=== PATIENT | male | born 1950 | race African-American/Black ===

== ENCOUNTER 2018-04-07 09:10 | Emergency (ER) | payer MEDICARE ==
[2018-04-07 09:34] VITALS: BP 162/95; PULSE 75; TEMP 98.3; BMI 32.5
[2018-04-07] MEDS ORDERED: ONDANSETRON 4 MG/2 ML VIAL IVPUSH ONE (10:09)
--- NOTE | 2018-04-07 10:15 | PDOC ---
Attending Attestation - Resident Resident Name: CarmeloBronson - ED Attending Attestation I have performed the following: I have examined & evaluated the patient, The case was reviewed & discussed with the resident, I agree w/resident's findings & plan, Exceptions are as noted - HPI HPI: 04/07/18 10:10 67 yo M h/o DM HTN HLD, eSRD (not on dialysis yet ) left av fistula here with abd pain n/v. pt states vomiting has been off and on for one week. last night he threw up several times. no cp no sob. no f/c no abd pain , only prior to vomiting. last bm was this am, no abnormalities. no diarreha. has had multiple surgeries in the past including gastric sleeve 2 yrs ago in [facility], cholecystectomy, hernia repair, and throat surgery for throat cancer. this am tried to drink water and coffeee, but had severe nausea. - Physicial Exam PE: 04/07/18 10:13 awake alert lungs clear bilaterally heart rrr no mrg abd soft nt nd. ext wwp no edema. no calf tenderness. skin warm and dry. left forearm fistula good bruit, no erythema. nuero alert oriented x 3. - Medical Decision Making 04/07/18 10:13 differential: electrolyte abnormality worsening uremia causing nausea, vomiting , infection , anemia, osbruction, complications of gastric sleeve. plan ct a/p ( pt allergic to oral and iv contrast. ) antiemetics. small ivf bolus reassess. 04/07/18 12:43 pt labs are at baseline cr. 4.3, near baseline. pt asking to eat. awaiting ct report. Heart Score/ECG Review #1 General ECG Interpretation: Sinus Rhythm, Normal Rate (70), Normal Intervals, No acute ischemic changes
[2018-04-07] MEDS ORDERED: ONDANSETRON 4 MG/2 ML VIAL ONE (11:31)
--- NOTE | 2018-04-07 11:53 | PDOC ---
History of Present Illness - General Chief Complaint: Nausea/Vomiting Stated Complaint: ABD PAIN, NAUSEA History Source: Patient Exam Limitations: No Limitations - History of Present Illness Initial Comments: 04/07/18 11:49 67 yo M with a hx of gastric sleeve (2 years ago), ESRD (not on dialysis; left wrist AV fistula placed 3 years ago), and throat cancer (s/p resection 2017) presents to the emergency department with vomiting Past History - Past Medical History Allergies/Adverse Reactions: Allergies Allergy/AdvReac Type Severity Reaction Status Date / Time Iodinated Contrast- Oral and Allergy Hives Verified 04/07/18 09:30 IV Dye [IV Dye, Iodine Containing Contrast ] TAPE AdvReac Rash Uncoded 04/07/18 09:30 Home Medications: Ambulatory Orders Cholecalciferol (Vitamin D3) [Vitamin D3] 2,000 unit PO DAILY 12/04/14 Amlodipine Besylate [Norvasc -] 20 mg PO DAILY 02/26/15 Simvastatin 40 mg PO HS 08/19/15 Anemia: No Asthma: Yes Cancer: No Cardiac Disorders: No CVA: No COPD: Yes CHF: No Dementia: No Diabetes: Yes (non insulin) GI Disorders: Yes (COLON POLYPS, DIVERTICULOSIS) Disorders: No (RENAL INSUFFICIENCY) HTN: Yes Hypercholesterolemia: Yes Liver Disease: Yes (FATTY LIVER) Seizures: No Thyroid Disease: No - Surgical History Abdominal Surgery: Yes (UMBILICAL HERNIA REPAIR WITH MESH) Appendectomy: No Cardiac Surgery: No Cholecystectomy: Yes Lung Surgery: No Neurologic Surgery: No Orthopedic Surgery: No - Immunization History Immunization Up to Date: Yes - Suicide/Smoking/Psychosocial Hx Smoking Status: No Smoking History: Former smoker Have you smoked in the past 12 months: No Number of Cigarettes Smoked Daily: 1 If you are a former smoker, when did you quit?: 2013 Information on smoking cessation initiated: No 'Breaking Loose' booklet given: 02/27/15 Hx Alcohol Use: No Drug/Substance Use Hx: No Substance Use Type: None Hx Substance Use Treatment: No *Physical Exam - Vital Signs Last Vital Signs Temp Pulse Resp BP Pulse Ox 98.3 F 75 18 162/95 100 04/07/18 09:30 04/07/18 09:30 04/07/18 09:30 04/07/18 09:30 04/07/18 09:30 Moderate Sedation - Procedure Monitoring Vital Signs: Procedure Monitoring Vital Signs Temperature 98.3 F 12/07/18 09:30 Pulse Rate 75 04/07/18 09:30 Respiratory Rate 18 04/07/18 09:30 Blood Pressure 162/95 04/07/18 09:30 O2 Sat by Pulse Oximetry (%) 100 04/07/18 09:30 ED Treatment Course - LABORATORY CBC & Chemistry Diagram: 04/07/18 11:25 04/07/18 10:08 Medical Decision Making - Medical Decision Making 04/07/18 14:06 tolerate PO prior to discharge *DC/Admit/Observation/Transfer Diagnosis at time of Disposition: Vomiting Qualifiers: Vomiting type: unspecified Vomiting Intractability: intractable Nausea presence : without nausea Qualified Code(s): R11.11 - Vomiting without nausea Abdominal pain Qualifiers: Abdominal location: unspecified location Qualified Code(s): R10.9 - Unspecified abdominal pain - Discharge Dispostion Disposition: HOME Decision to Admit order: No - Referrals Referrals: Michael Noguera MD [Primary Care Provider] - - Patient Instructions Printed Discharge Instructions: DI for Vomiting -- Adult Additional Instructions: you were evaluated in the emergency department for your vomiting and abdominal pain. your labs were within normal limits. Your abdomen CT was negative for new pathologies. We obtained this scan because of our concern of a malfunctioning gastric sleeve. Please follow up with Dr. Noguera within 72 hours after discharge for follow up care and management. Please return to the emergency department if you have worsening symptoms or new concerning symptoms such as loss of stool production, fever/chills, chest pain, shortness of breath, and non-intractable vomiting. thank you. - Post Discharge Activity
[2018-04-07 12:18] LABS: EOS % 7.6 % (0-4.5); WHITE BLOOD COUNT 8.4 K/mm3 (4.0-10.0)
[2018-04-07 12:29] LABS: BASO % 0.8 % (0-2.0); HEMATOCRIT 40.6 % (35.4-49); HEMOGLOBIN 12.7 GM/dL (11.7-16.9); LYMPH % 27.1 % (8-40); MCH 29.4 pg (25.7-33.7); MCHC 31.4 g/dl (32.0-35.9); MEAN CELL VOLUME 93.5 fl (80-96); MEAN PLT VOLUME 10.8 fl (7.5-11.1); MONO % 7.3 % (3.8-10.2); NEUT % 57.2 % (42.8-82.8); PLATELET COUNT 201 K/MM3 (134-434); RBC 4.34 M/mm3 (4.00-5.60); RDW 14.4 % (11.9-15.9)
[2018-04-07 12:36] LABS: ALBUMIN 4.1 g/dl (3.4-5.0); ALK PHOS 136 U/L (45-117); ANION GAP 8 MMOL/L (8-16); BILIRUBIN,TOTAL 0.5 mg/dL (0.2-1); BLOOD UREA NITROGEN 33 mg/dL (7-18); CALCIUM 10.2 mg/dL (8.5-10.1); CHLORIDE 110 mmol/L (98-107); CO2 26 mmol/L (21-32); CREATININE 4.3 mg/dL (0.55-1.3); GLUCOSE,RANDOM 93 mg/dL (74-106); LIPASE 319 U/L (73-393); POTASSIUM 4.9 mmol/L (3.5-5.1); SGOT/AST 14 U/L (15-37); SGPT/ALT 22 U/L (13-61); SODIUM 144 mmol/L (136-145); TOT PROT 7.7 g/dl (6.4-8.2)
--- NOTE | 2018-04-07 19:01 | EKG ---
Test Reason : Blood Pressure : / mmHG Vent. Rate : 070 BPM Atrial Rate : 070 BPM P-R Int : 176 ms QRS Dur : 090 ms QT Int : 372 ms P-R-T Axes : 056 -32 071 degrees QTc Int : 401 ms NORMAL SINUS RHYTHM LEFT AXIS DEVIATION ABNORMAL ECG WHEN COMPARED WITH ECG OF 05-FEB-2015 19:49, VENT. RATE HAS DECREASED BY 37 BPM Confirmed by BLANCHE HOSKINS, JOSEPH ([id number]) on 04/07/2018 7:00:56 PM Referred By: Confirmed By:JOSEPH MANCIA MD
== END 2018-04-07 13:49 | disposition home or self-care (01) ==
LOC: JER 09:10
PROC: 3E033GC Introduction of Other Therapeutic Substance into Peripheral Vein, Percutaneous Approach (ICD-10-PCS; principal; 2018-04-07)
DX: R10.9 Unspecified abdominal pain (principal); R11.10 Vomiting, unspecified; I12.0 Hypertensive chronic kidney disease with stage 5 chronic kidney disease or end stage renal disease; E11.22 Type 2 diabetes mellitus with diabetic chronic kidney disease; N18.6 End stage renal disease; N17.8 Other acute kidney failure; Z79.84 Long term (current) use of oral hypoglycemic drugs; E78.00 Pure hypercholesterolemia, unspecified
CPT/HCPCS: 36415; 74176-TC; 80053; 82550; 83690; 84484; 85025; 93005; 93010; 96374; 99282-25

== ENCOUNTER 2020-04-02 10:40 | Emergency (ER) | payer OTHER ==
[2020-04-02 10:47] VITALS: BP 137/90; PULSE 91; BMI 33.5
[2020-04-02 10:48] VITALS: TEMP 98.6
== END 2020-04-02 11:41 | disposition home or self-care (01) ==
LOC: JERFT 10:40
DX: M26.602 Left temporomandibular joint disorder, unspecified (principal)
CPT/HCPCS: 99282-25

== ENCOUNTER 2020-10-18 21:26 | Inpatient (IN) | payer OTHER ==
[2020-10-18] MEDS ORDERED: LIDOCAINE 5% TOPICAL PATCH TP ONE (22:21)
[2020-10-18] MEDS ORDERED: IBUPROFEN 600 MG TABLET (FP) PO ONE (22:23)
[2020-10-18] MEDS ORDERED: LIDOCAINE 5% TOPICAL PATCH ONE (22:28)
[2020-10-18] MEDS ORDERED: ACETAMINOPHEN 325 MG TABLET (FP) PO ONE (22:28)
[2020-10-18] MEDS ORDERED: ACETAMINOPHEN 325 MG TABLET (FP) ONE (22:29)
[2020-10-18 22:55] LABS: BASO % 1.1 % (0-2.0); EOS % 7.9 % (0-4.5); HEMOGLOBIN 10.9 GM/dL (11.7-16.9); LYMPH % 22.3 % (8-40); MCH 31.4 pg (25.7-33.7); MCHC 33.1 g/dl (32.0-35.9); MEAN CELL VOLUME 94.8 fl (80-96); MEAN PLT VOLUME 9.1 fl (7.5-11.1); MONO % 9.4 % (3.8-10.2); NEUT % 59.3 % (42.8-82.8); PLATELET COUNT 165 10^3/uL (134-434); RBC 3.48 M/mm3 (4.00-5.60); RDW 14.1 % (11.9-15.9); WHITE BLOOD COUNT 8.2 K/mm3 (4.0-10.0)
[2020-10-18 23:19] LABS: CHLORIDE 108 mmol/L (98-107); SODIUM 143 mmol/L (136-145)
[2020-10-18 23:21] LABS: CALCIUM 7.7 mg/dL (8.5-10.1)
[2020-10-18 23:22] LABS: ALBUMIN 3.8 g/dl (3.4-5.0); ANION GAP 9 MMOL/L (8-16); BLOOD UREA NITROGEN 59.6 mg/dL (7-18); CO2 26 mmol/L (21-32); GLUCOSE,RANDOM 86 mg/dL (74-106); MAGNESIUM 2.3 mg/dL (1.8-2.4)
[2020-10-18 23:25] LABS: SGOT/AST 15 U/L (15-37); SGPT/ALT 14 U/L (13-61)
[2020-10-18 23:27] LABS: BILIRUBIN,TOTAL 0.4 mg/dL (0.2-1); TOT PROT 7.1 g/dl (6.4-8.2)
[2020-10-18 23:28] LABS: ALK PHOS 74 U/L (45-117)
[2020-10-19] LABS: CREATININE 10.4 mg/dL (0.55-1.3)
[2020-10-19 03:35] VITALS: BMI 34.7
[2020-10-19 03:50] VITALS: TEMP 97.7
[2020-10-19 03:50] LABS: PHOSPHOROUS 5.6 mg/dL (2.5-4.9)
[2020-10-19] MEDS: ACETAMINOPHEN 325 MG TABLET (FP) PO PRN ×2 (04:15→10:59)
[2020-10-19] MEDS: HEPARIN NA (PORCINE) 5,000 UNITS/ML 1ML VIAL SQ SCH ×2 (06:10→14:57)
[2020-10-19 08:12] LABS: CHLORIDE 107 mmol/L (98-107); SODIUM 142 mmol/L (136-145)
[2020-10-19 08:13] LABS: CALCIUM 7.7 mg/dL (8.5-10.1); MCHC 32.4 g/dl (32.0-35.9); MEAN CELL VOLUME 95.5 fl (80-96); MEAN PLT VOLUME 9.3 fl (7.5-11.1); PLATELET COUNT 156 10^3/uL (134-434); RBC 3.56 M/mm3 (4.00-5.60); RDW 14.1 % (11.9-15.9); WHITE BLOOD COUNT 6.9 K/mm3 (4.0-10.0)
[2020-10-19 08:14] LABS: ANION GAP 9 MMOL/L (8-16); BLOOD UREA NITROGEN 61.1 mg/dL (7-18); CO2 26 mmol/L (21-32); GLUCOSE,RANDOM 86 mg/dL (74-106); MAGNESIUM 2.4 mg/dL (1.8-2.4)
[2020-10-19 08:22] LABS: IRON SERUM 58 ug/dL (50-175)
[2020-10-19 08:39] LABS: CREATININE 10.3 mg/dL (0.55-1.3)
[2020-10-19] MEDS ORDERED: PANTOPRAZOLE 40 MG TABLET PO SCH (10:00)
[2020-10-19] MEDS ORDERED: amLODIPine BESYLATE 5 MG TABLET (FP) PO SCH (10:00)
[2020-10-19] MEDS ORDERED: LIDOCAINE PATCH REMOVAL MC SCH (10:00)
[2020-10-19] MEDS ORDERED: CALCIUM CARBONATE 650 MG TABLET PO SCH (10:00)
[2020-10-19] MEDS ORDERED: FINASTERIDE 5 MG TABLET (FP) PO SCH (10:00)
[2020-10-19] MEDS ORDERED: PT OWN MED DRAWER 7, Y5N ONE ×2 (10:15→12:25)
[2020-10-19] MEDS ORDERED: SODIUM CHLORIDE 250 ML IV PRN (12:44)
[2020-10-19 16:33] VITALS: PULSE 74
[2020-10-19 17:12] VITALS: BP 128/86
[2020-10-19] MEDS ORDERED: ATORVASTATIN CA 20 MG TABLET (FP) PO SCH (22:00)
== END 2020-10-19 18:31 | disposition home or self-care (01) | DRG 682 ==
LOC: JER 21:26 → JERBED 22:41 → J7W 10-19 02:57
PROVIDERS: ADMIT Internal Medicine; ATTEND Internal Medicine
PROC: 5A1D70Z Performance of Urinary Filtration, Intermittent, Less than 6 Hours Per Day (ICD-10-PCS; principal; 2020-10-19)
DX: I12.0 Hypertensive chronic kidney disease with stage 5 chronic kidney disease or end stage renal disease (principal); N18.6 End stage renal disease; E11.22 Type 2 diabetes mellitus with diabetic chronic kidney disease; E78.5 Hyperlipidemia, unspecified; E66.9 Obesity, unspecified; Z68.34 Body mass index [BMI] 34.0-34.9, adult; E83.51 Hypocalcemia; D63.1 Anemia in chronic kidney disease; K59.09 Other constipation; G47.30 Sleep apnea, unspecified; Z85.850 Personal history of malignant neoplasm of thyroid; Z99.2 Dependence on renal dialysis
CPT/HCPCS: 36415; 70490-TC; 71045-TC-FY; 80048; 80053; 82652; 82728; 83036; 83540; 83550; 83735; 83970; 84100; 85025; 85027; 86803; 87340; 93005; 93010; 99285-25; C9803; J1644; U0003; U0005

== ENCOUNTER 2021-03-25 04:22 | Day surgery (SDC) | payer OTHER ==
[2021-03-24 11:15] VITALS: BMI 44.3
[2021-03-25] MEDS ORDERED: MIDAZOLAM HCL 2 MG/2 ML SINGLE DOSE VIAL ONE (10:00)
[2021-03-25] MEDS ORDERED: PROPOFOL 20 ML ONE (10:00)
[2021-03-25] MEDS ORDERED: ROCURONIUM BROMIDE 50 MG/5 ML SYRINGE ONE (10:00)
[2021-03-25] MEDS ORDERED: BUPIVACAINE HCL/PF 0.5% (5MG/ML) 10 ML VIAL ONE (10:10)
[2021-03-25] MEDS ORDERED: ETOMIDATE 20 MG/10 ML AMPUL IVPUSH ONE (10:43)
[2021-03-25] MEDS ORDERED: DEXAMETHASONE SOD PHOSPHATE 4 MG/1 ML VIAL ONE (10:50)
[2021-03-25] MEDS ORDERED: ceFAZolin SODIUM 1 GM VIAL ONE (10:50)
[2021-03-25] MEDS ORDERED: ceFAZolin SODIUM 1 GM VIAL IVPB ONE (10:50)
[2021-03-25] MEDS ORDERED: BUPIVACAINE HCL/PF 0.5% (5MG/ML) 10 ML VIAL IJ ONE (11:05)
[2021-03-25] MEDS ORDERED: NEOSTIGMINE METHYLSULFATE 0.5 MG/ML - 10 ML MDV ONE (11:33)
[2021-03-25] MEDS ORDERED: GLYCOPYRROLATE 0.2 MG/1 ML VIAL ONE (11:34)
[2021-03-25] MEDS ORDERED: oxyCODONE HCL 5 MG TABLET PO PRN ×2 (11:58)
[2021-03-25] MEDS ORDERED: ONDANSETRON 4 MG/2 ML VIAL IVPUSH PRN (11:58)
[2021-03-25] MEDS ORDERED: SODIUM CHLORIDE 1,000 ML IV SCH (12:00)
[2021-03-25] MEDS ORDERED: oxyCODONE HCL 5 MG TABLET ONE (12:40)
[2021-03-25] MEDS ORDERED: ONDANSETRON 4 MG/2 ML VIAL ONE (12:40)
[2021-03-25 14:27] VITALS: BP 138/80; PULSE 68; TEMP 97.2
== END 2021-03-25 14:15 | disposition home or self-care (01) ==
LOC: JASU-SURG 04:22
PROVIDERS: ATTEND Surgery
PROC: 0WHG43Z Insertion of Infusion Device into Peritoneal Cavity, Percutaneous Endoscopic Approach (ICD-10-PCS; principal; 2021-03-25 10:00)
DX: I12.0 Hypertensive chronic kidney disease with stage 5 chronic kidney disease or end stage renal disease (principal); E11.22 Type 2 diabetes mellitus with diabetic chronic kidney disease; N18.6 End stage renal disease; Z99.2 Dependence on renal dialysis
CPT/HCPCS: 36415; 84132; 94760; J1644

== ENCOUNTER 2023-02-04 12:53 | Observation (INO) | payer MEDICARE ==
[2023-02-04 13:27] VITALS: BMI 33.6
[2023-02-04] MEDS ORDERED: ONDANSETRON 4 MG/2 ML VIAL IVPB ONE (13:33)
[2023-02-04] MEDS ORDERED: ACETAMINOPHEN 1000 MG/100 ML BAG IVPB ONE (13:33)
[2023-02-04] MEDS ORDERED: SODIUM CHLORIDE 0.9% 500 ML INFUS.BAG IV ONE (13:33)
[2023-02-04 13:56] LABS: HEMATOCRIT 54.2 % (35.4-49); HEMOGLOBIN 17.8 G/dL (11.7-16.9); MCH 30.3 pg (25.7-33.7); MCHC 32.8 g/dl (32.0-35.9); MEAN CELL VOLUME 92.4 fl (80-96); MEAN PLT VOLUME 11.7 fl (7.5-11.1); PLATELET COUNT 148.1 10^3/uL (134-434); RBC 5.87 10^6/uL (4.00-5.60); RDW 16.6 % (11.9-15.9); WHITE BLOOD COUNT 10.5 10^3/uL (4.0-10.8)
[2023-02-04] MEDS ORDERED: ACETAMINOPHEN INJECTION 100 ML IVPB ONE (14:01)
[2023-02-04] MEDS ORDERED: ONDANSETRON 4 MG/2 ML VIAL ONE (14:01)
[2023-02-04 14:02] LABS: PLATELET ESTIMATE ADEQUATE
[2023-02-04 14:05] LABS: ALBUMIN 4.3 g/dl (3.4-5.0); BILIRUBIN,TOTAL 0.7 mg/dl (0.2-1); BLOOD UREA NITROGEN 11.5 mg/dl (7-18); CREATININE 1.4 mg/dl (0.6-1.3); MAGNESIUM 1.7 mg/dL (1.8-2.4); PHOSPHOROUS 3.16 (2.5-4.9); POTASSIUM 3.5 mmol/L (3.5-5.1); SGOT/AST 12.4 U/L (15-37); SGPT/ALT 12.5 U/L (7-52); TOT PROT 6.7 g/dl (6.4-8.2)
[2023-02-04] MEDS ORDERED: MAGNESIUM SULFATE IN WATER 2 GM/50 ML IVPB IVPB ONE ×2 (16:17→16:21)
[2023-02-04] MEDS ORDERED: SIMETHICONE 80 MG TAB.CHEW (FP) PO PRN (20:45)
[2023-02-04] MEDS ORDERED: ATORVASTATIN CA 10 MG TABLET (FP) PO SCH (22:00)
[2023-02-04] MEDS ORDERED: FINASTERIDE 5 MG TABLET (FP) PO SCH (22:00)
[2023-02-04] MEDS: PANTOPRAZOLE 40 MG TABLET PO SCH (22:03)
[2023-02-04] MEDS: MYCOPHENOLATE SODIUM 360 MG TABLET.DR PO SCH (22:05)
[2023-02-04] MEDS: TACROLIMUS ANHYDROUS 1 MG CAPSULE PO SCH (22:05)
[2023-02-05 08:55] LABS: ALBUMIN 3.7 g/dl (3.4-5.0); BILIRUBIN,TOTAL 0.7 mg/dl (0.2-1); BLOOD UREA NITROGEN 11.8 mg/dl (7-18); CALCIUM 8.5 mg/dl (8.5-10.1); CREATININE 1.4 mg/dl (0.6-1.3); POTASSIUM 4.1 mmol/L (3.5-5.1); SGOT/AST 12.6 U/L (15-37); SGPT/ALT 11.5 U/L (7-52); TOT PROT 5.8 g/dl (6.4-8.2)
[2023-02-05 09:03] VITALS: TEMP 97.7
[2023-02-05] MEDS: PANTOPRAZOLE 40 MG TABLET PO SCH (09:47)
[2023-02-05] MEDS: TACROLIMUS ANHYDROUS 1 MG CAPSULE PO SCH (09:48)
[2023-02-05] MEDS: MYCOPHENOLATE SODIUM 360 MG TABLET.DR PO SCH (09:49)
[2023-02-05 09:56] LABS: BASO % 0.7 % (0-2.0); EOS % 4.2 % (0-4.5); HEMOGLOBIN 15.7 GM/dL (11.7-16.9); LYMPH % 24.3 % (8-40); MCH 29.2 pg (25.7-33.7); MCHC 32.8 g/dl (32.0-35.9); MEAN CELL VOLUME 88.9 fl (80-96); MEAN PLT VOLUME 9.7 fl (7.5-11.1); MONO % 8.9 % (3.8-10.2); NEUT % 61.9 % (42.8-82.8); PLATELET COUNT 131 10^3/uL (134-434); RDW 16.9 % (11.9-15.9); WHITE BLOOD COUNT 8.3 K/mm3 (4.0-10.0)
[2023-02-05] MEDS ORDERED: MAGNESIUM OXIDE 400 MG TABLET (FP) PO SCH (10:00)
[2023-02-05] MEDS ORDERED: MULTIVITAMINS (DAILY MVI) TABLET (FP) PO SCH (10:00)
[2023-02-05] MEDS ORDERED: ASPIRIN 81 MG CHEWABLE TABLETS PO SCH (10:00)
[2023-02-05] MEDS ORDERED: CALCITRIOL 0.25 MCG CAPSULE (FP) PO SCH (10:00)
[2023-02-05] MEDS ORDERED: metoPROLOL SUCCINATE 25 MG TAB.SR.24H (FP) PO SCH (10:15)
[2023-02-05 10:43] VITALS: BP 151/80; PULSE 108; RESP 16
== END 2023-02-05 12:58 | disposition home or self-care (01) ==
LOC: FER 12:53 → FM/S 15:00
PROVIDERS: ADMIT Internal Medicine; ATTEND Internal Medicine
PROC: 3E033NZ Introduction of Analgesics, Hypnotics, Sedatives into Peripheral Vein, Percutaneous Approach (ICD-10-PCS; principal; 2023-02-04)
PROC: 3E033GC Introduction of Other Therapeutic Substance into Peripheral Vein, Percutaneous Approach (ICD-10-PCS; 2023-02-04)
PROC: 3E0337Z Introduction of Electrolytic and Water Balance Substance into Peripheral Vein, Percutaneous Approach (ICD-10-PCS; 2023-02-04)
DX: I47.1 Supraventricular tachycardia (principal); I12.0 Hypertensive chronic kidney disease with stage 5 chronic kidney disease or end stage renal disease; I48.0 Paroxysmal atrial fibrillation; R11.10 Vomiting, unspecified; N18.5 Chronic kidney disease, stage 5; Z94.0 Kidney transplant status; E11.9 Type 2 diabetes mellitus without complications; E78.5 Hyperlipidemia, unspecified; Z91.148 Patient's other noncompliance with medication regimen for other reason; Z98.84 Bariatric surgery status
CPT/HCPCS: 36415; 71045-TC-FY; 74176-TC; 80053; 82010; 83690; 83735; 84100; 84443; 84484; 85025; 85027; 93005; 96365; 96375; 99285-25; G0378

== ENCOUNTER 2023-02-16 12:46 | Emergency (ER) | payer MEDICARE ==
[2023-02-16 12:57] VITALS: TEMP 98; BMI 34.5
[2023-02-16 14:30] LABS: BASO % 0.6 % (0-2.0); EOS % 2.3 % (0-4.5); HEMATOCRIT 49.3 % (35.4-49); HEMOGLOBIN 16.5 GM/dL (11.7-16.9); LYMPH % 11.1 % (8-40); MCHC 33.5 g/dl (32.0-35.9); MEAN CELL VOLUME 89.7 fl (80-96); MEAN PLT VOLUME 9.4 fl (7.5-11.1); MONO % 7.6 % (3.8-10.2); NEUT % 78.4 % (42.8-82.8); PLATELET COUNT 144 10^3/uL (134-434); RDW 16.7 % (11.9-15.9); WHITE BLOOD COUNT 10.2 K/mm3 (4.0-10.0)
[2023-02-16 14:35] LABS: INR 1.1 (0.83-1.09); PROTHROMBIN TIME (PATIENT) 12.7 SEC (9.7-13.0)
[2023-02-16 14:38] LABS: ACTIVATED PTT 31.4 SECONDS (25.2-36.5)
[2023-02-16 14:56] LABS: POTASSIUM 3.5 mmol/L (3.5-5.1)
[2023-02-16 14:59] LABS: ALBUMIN 3.5 g/dl (3.4-5.0); BLOOD UREA NITROGEN 13.6 mg/dL (7-18); CALCIUM 8.4 mg/dL (8.5-10.1); MAGNESIUM 1.6 mg/dL (1.8-2.4)
[2023-02-16 15:02] LABS: CREATININE 1.6 mg/dL (0.55-1.3); PHOSPHOROUS 3.6 mg/dL (2.5-4.9)
[2023-02-16 15:04] LABS: BILIRUBIN,TOTAL 0.6 mg/dL (0.2-1); TOT PROT 6.7 g/dl (6.4-8.2)
[2023-02-16 16:46] LABS: EPI CELLS 11 /uL (0-25.1); HYALINE CASTS 2 /uL (0-3.1); PH,URINE 5.5 (5.0-8.0); URINE APPEARANCE CLEAR; URINE BACTERIA 133 /uL (0-1359); URINE BILIRUBIN 1+ (NEGATIVE); URINE COLOR DK YELLOW; URINE GLUCOSE (UA) NEGATIVE (NEGATIVE); URINE KETONE TRACE (NEGATIVE); URINE LEUK ESTERASE TRACE (NEGATIVE); URINE NITRITE NEGATIVE (NEGATIVE); URINE PROTEIN 1+ (NEGATIVE); URINE RBC 5 /uL (0-23.9); URINE WBC 159 /uL (0-25.8)
[2023-02-16 17:38] VITALS: BP 107/72; PULSE 73; RESP 18
== END 2023-02-16 17:40 | disposition home or self-care (01) ==
LOC: JER 12:46
DX: R79.89 Other specified abnormal findings of blood chemistry (principal); N39.0 Urinary tract infection, site not specified
CPT/HCPCS: 36415; 80053; 80197; 81003; 83735; 84100; 85025; 85610; 85730; 87086; 93005; 93010; 99284-25